=== PATIENT | female | born 1995 | race Caucasian/White ===

== ENCOUNTER 2018-10-03 19:45 | Emergency (ER) | payer OTHER, MEDICAID, SELFPAY ==
[2018-10-03 19:46] VITALS: BP 90/61; PULSE 100; RESP 20; TEMP 36.8; O2SAT 90; BMI 22.4
--- NOTE | 2018-10-03 20:14 | US_ITS ---
We are attempting to reach an attending provider to discuss findings. An addendum with communication details will be sent when the communication is complete. STUDY: FIRST TRIMESTER OBSTETRICAL ULTRASOUND REASON FOR EXAM: Female, 23 years old. Cramping and bleeding LMP: TECHNIQUE: Transvaginal TECHNICAL QUALITY: Adequate. PRIOR ULTRASOUND: None. FINDINGS: There is visualization of a single gestational sac in a normal intrauterine position. The mean sac diameter (MSD) measures 2.57 cm, indicating an estimated gestational age (EGA) of 7 weeks, 5 days. The gestational sac shape is within normal limits. There is a visualized yolk sac. The yolk sac measures 4.1 mm. The placenta is non-visualized. There is visualization of a live embryo. The crown-rump length (CRL) measures 1.87 cm, indicating an estimated gestational age (EGA) of 8 weeks, 3 days. There is demonstrated cardiac activity with a heart rate of 170 bpm. The gestational sac is within the lower uterine segment. The estimated gestation age (EGA) by LMP is 8 weeks, 5 days. The estimated date of delivery (GLORIA) by LMP is May 10, 2019. The estimated gestation age (EGA) by US is 8 weeks, 1 days. The estimated date of delivery (GLORIA) by US is May 14, 2019. The uterus measures 9.8 x 5.1 x 4.6 cm. There is no demonstrated uterine fibroid. The cervix is closed. The right ovary measures 2.8 x 2 x 1.1 cm. There is no right ovarian cyst. There is no visualized right adnexal mass or complex lesion. The left ovary measures 1.9 x 1.1 x 1.4 cm. There is no left ovarian cyst. There is no visualized left adnexal mass or complex lesion. There is no fluid in the cul de sac. US/Transvaginal w/Preg US IMPRESSION: Viable intrauterine gestation with low-lying gestational sac. This most likely represents evolving spontaneous . Ectopic cervical less likely. Electronically Signed: Ervin Strange MD at 21:32 EDT , Service support ,
[2018-10-03 20:23] LABS: Absolute Lymphocyte Count 1.02 X10^3/ul (0.83-4.51); Absolute Neutrophil Count 10.7 X10^3/uL (2.0-7.7); Basophil# 0.03 X10^3/uL; Basophil% 0.2 % (0-1); Eosinophil# 0.36 X10^3/uL; Eosinophils% 2.8 % (0-5); Hematocrit 43.9 % (37-47); Hemoglobin 14.6 g/dl (12.0-15.0); Lymphocyte # 1.02 X10^3/ul (4.0); Lymphocyte % 7.9 % (19-41); Mean Corp Hgb Conc 33.3 g/gl (32-36); Mean Corpuscular Hgb 29.5 pg (27.0-32.0); Mean Corpuscular Volume 88.7 fL (81-99); Mean Platelet Vol. 12.2 fl (6.2-12.0); Monocyte# 0.76 X10^3/uL; Monocyte% 5.9 % (0-10); Neutrophil # 10.66 X10^3/uL (2.7-7.7); Platelet Count 193 K/mm3 (150-450); RBC Distribution Width CV 14.1 % (11.6-14.6); RBC Distribution Width SD 45.2 fl (35.1-43.9); Red Blood Count 4.95 M/mm3 (4.2-5.4); White Blood Count 12.9 K/mm3 (4.4-11.0)
[2018-10-03 20:25] LABS: POSITIVE COUNT NO; POSITIVE DIFFERENTIAL NO; POSITIVE MORPHOLOGY NO
[2018-10-03 20:32] LABS: Anion Gap 4 (5-15); BUN 12 mg/dL (7-18); BUN/Creat Ratio 11.7 RATIO (10-20); Calcium,Total 8.8 mg/dL (8.5-10.1); Chloride 108 mmol/L (98-107); Creatinine, Serum 1.03 mg/dL (0.55-1.02); EST Glomerular Filtration Rate 72 mL/min (>60); Est Glom Filt Rate - Afr Amer 87 mL/min (>60); Estimated Creatinine Clearance 71.47 ml/min; Glucose 92 mg/dL (74-106); Potassium 3.9 mmol/L (3.5-5.1); Sodium Level 137 mmol/L (136-145)
[2018-10-03 21:38] LABS: Mucous, Urine 0 SEEN /hpf (<or=2+)
[2018-10-03 21:48] LABS: Color, Urine Yellow (Yellow); Glucose, Dipstick Normal (Normal); Ketone-Dipstick 5 mg/dl (Negative); Leukocyte Esterase-Dipstick 500 /ul (Negative); Nitrite-Dipstick Positive (Negative); Occult Blood-Urine 250 /ul (Negative); Protein-Dipstick 30 mg/dl (Negative); Urine Bilirubin Dipstick Negative (Negative); Urine Clarity Cloudy (Clear); Urine Urobilinogen Normal (Normal)
[2018-10-03 21:51] LABS: Red Blood Cells-Urine 50-100 SEEN /hpf (0-5); Squamous Epithelial Cells - UA 0-5 SEEN /hpf (5-10)
[2018-10-03 21:52] LABS: Bacteria 1+ /hpf (None Seen); White Blood Cells >100 SEEN /hpf (0-5)
--- NOTE | 2018-10-03 22:07 | ED.VISSUMM ---
- ER Visit Summary Date of Service: 10/03/18 Chief Complaint: Bleeding History of Present Illness: The patient is a 23 F G2, P0 AB1 at 8 weeks. Blood type a positive. Patient had some light vaginal spotting yesterday and then was passing clots today. She denies lightheadedness or other associated symptoms. Physical Examination: Afebrile and vital signs unremarkable. Patient is alert and oriented. No acute distress. Abdomen soft and nontender. Pelvic exam deferred. Test Results: hCG quant was 58,000. CBC and BMP unremarkable. Urinalysis shows signs of UTI. Pelvic ultrasound showed a live intrauterine approximately 8 weeks old at the cervix. This is thought to be an in progress. Less likely to be an ectopic . Emergency Department Course and Treatment: Findings were discussed with radiology and then commercial lines account manager Dylan. No further orders. This is likely an inevitable . Patient and family were notified. She was treated with Macrobid for UTI. She has an out of town OB that she would like to follow-up with. I also gave her follow-up with MANAGING JEWELER here, if she needs assistance. I advised her that she may have increasing bleeding, pain and may pass tissue. She should return for any severe issues, otherwise follow-up with MANAGING JEWELER. Call in the morning. Treatment Plan: As above Disposition: Discharge Impression: Inevitable This note was generated with [employer] dictation software. It may contain incorrect words, spelling, and punctuation that were not noted in review of the chart prior to signing ED Disposition - Plan for ED Patient: Disposition: Home or Assisted Living Instructions: ED Miscarriage Poss Prescriptions: Nitrofurantoin Macrocrystals [Macrobid] 100 mg PO Q12 #14 cap Referrals: Ella Richardson CNM [Certified Nurse Manager Diversity] - As Needed
--- NOTE | 2018-10-03 22:08 | DCINST.ED_ITS ---
ED Disposition - Plan for ED Patient: Instructions: ED Miscarriage Poss Prescriptions: Nitrofurantoin Macrocrystals [Macrobid] 100 mg PO Q12 #14 cap Referrals: Ella Richardson CNM [Certified Nurse Screw Machine Operator Single Spindle] - As Needed
[2018-10-03] MEDS: Nitrofurantoin Macrocrystals 100 MG Capsule PO (22:17)
[2018-10-03 22:28] VITALS: BP 102/74; PULSE 89; RESP 16; O2SAT 95
--- NOTE | 2018-10-03 22:29 | ED.RN ---
REVIEWED D/C INSTRUCTIONS, FOLLOW UP CARE, PRESCRIPTION, AND S/S THAT WOULD WARRANT A RETURN TO THE ED WITH PT. PT VERBALIZED AN UNDERSTANDING AND DENIES FURTHER QUESTIONS FOR THIS RN. PT SKIN P/W/D, RESP EVEN AND UNLABORED, PT A&O X 3, NO DISTRESS NOTED. PT AMBULATED OUT OF ED, GAIT STEADY.
== END 2018-10-03 22:31 | disposition home or self-care (01) ==
PROVIDERS: Emergency Provider Emergency Medicine
DX: O03.88 Urinary tract infection following complete or unspecified spontaneous abortion (principal)
CPT/HCPCS: 76817; 80048; 81001; 84702; 85025; 99284; A4216

== ENCOUNTER 2018-10-27 18:23 | Observation (INO) | payer OTHER, MEDICAID, SELFPAY ==
[2018-10-27] VITALS (15 sets, daily range): BP systolic 74–118; BP diastolic 52–83; PULSE 77–112; RESP 14–24; TEMP 36.6–37.5; O2SAT 88–94; BMI 22.6; BMI 22.7
--- NOTE | 2018-10-27 18:43 | US_ITS ---
HISTORY: BLEEDING KNOWN MISCARRIAGE - SEE 10/03 IMAGES QUANT TODAY 524 . WAS 58,000 ON 10/03 EXAM/TECHNIQUE: US Transvaginal Non-OB: Transvaginal images. COMPARISON: Pelvic ultrasound 10/03/18. FINDINGS: # of images incl. paperwork: 73 The intrauterine seen on the previous study is no longer evident. The fundal endometrium measures 0.5 cm thick and is unremarkable. However the lower uterine segment endometrium/upper cervical canal is expanded by an oval in shape 3.3 x 1.8 x 2.7 cm in size heterogenous mostly soft tissue echogenicity structure with foci of Doppler flow within it. The uterus measures 9.3 x 5.3 x 4.1 cm. No fibroids. Right ovary 3.6 x 3.6 x 1.4 cm. Left ovary 3.4 x 2.3 x 1.7 cm. Both ovaries have normal ultrasound appearance with normal Doppler flow. Moderate free fluid is seen in the pelvis. US/Transvaginal Non- IMPRESSION: 3.3 cm in greatest dimension oval heterogenous lesion expands the lower uterine segment endometrium/upper cervical canal most likely retained products of conception. The intrauterine seen on previous study is no longer evident. at 2025 Reported and signed by: Ilya Werner MD Electronically Signed: Ilya Werner, at 20:24 EDT Tel , Service support ,
--- NOTE | 2018-10-27 18:49 | EKG12_ITS ---
Test Reason : CARIAC HX Blood Pressure : / mmHG Vent. Rate : 099 BPM Atrial Rate : 099 BPM P-R Int : 126 ms QRS Dur : 116 ms QT Int : 352 ms P-R-T Axes : 033 046 086 degrees QTc Int : 451 ms Normal sinus rhythm Incomplete right bundle branch block ST & T wave abnormality, consider anterior ischemia Abnormal ECG Confirmed by RAFI SORENSON, SHRADDHA ([id number]), magazine editor KIRA DANGELO ([id number]) on 10/30/2018 7:58:59 AM Referred By: Ingrid Alvarez Confirmed By:SHRADDHA MCKEE MD
--- NOTE | 2018-10-27 18:49 | ED.VISSUMM ---
- ER Visit Summary Date of Service: 10/27/18 Chief Complaint: Vaginal bleeding History of Present Illness: The patient is a 23 F who on October 03 was diagnosed with inevitable miscarriage. G2, P0 Ab1. She states that she is continued to bleed since that time. There is been some days where she has not bled but other days where she has had heavy bleeding and large clots. Significant other notes that she looks pale. She states she feels lightheaded and weak. The note that she is been chilling when unable to get warm. She has not seen INSURANCE CLAIMS CLERK. She is from out of town but they come to this facility because mom told her that this would be the place to be. She has a history of hypoplastic left heart. She said she had several cardiac surgeries to correct the heart and is currently not following with cardiology. She is a poor historian Physical Examination: Sitting pressure 74/52 heart rate of 112 respirations are 18 pulse ox 89% on room air temperature 97.8 Gen: Well-nourished well-developed Head: Normocephalic atraumatic Eyes: Perrl EOMI pale conjunctiva ENT: TMs clear no rhinorrhea moist mucous membranes Neck: Supple no lymphadenopathy no JVD nontender CVS: Regular rate tachycardia rhythm no murmurs normal S1-S2 Respiratory: No distress clear to auscultation bilaterally chest nontender Abdomen: Soft nontender nondistended normal bowel sounds no masses Back: Nontender Extremity: Nontender no edema Skin: Parlor no rash Neuro: alert orientated ?3 CN II-XII intact normal strength sensation Psych: Normal affect normal mood Test Results: Hemoglobin is 6.9. Quant date of hCG is 547. ABO Rh is a positive. Pelvic ultrasound demonstrated retained products. Emergency Department Course and Treatment: I discussed the case early with Dr. Alvarez and updated her once the work-up was completed she is coming to the emergency department to evaluate the patient. She is typed and crossed 1 unit. Impression: 1. Retained products of conception 2. Anemia requiring transfusion. This note was generated with [employer] dictation software. It may contain incorrect words, spelling, and punctuation that were not noted in review of the chart prior to signing ED Disposition - Plan for ED Patient: Referrals: Care Physician,No Primary [Primary Care Provider] -
[2018-10-27 18:56] LABS: Absolute Lymphocyte Count 0.81 X10^3/ul (0.83-4.51); Absolute Neutrophil Count 8.6 X10^3/uL (2.0-7.7); Basophil# 0.07 X10^3/uL; Basophil% 0.7 % (0-1); Eosinophil# 0.36 X10^3/uL; Eosinophils% 3.4 % (0-5); Hematocrit 21.9 % (37-47); Hemoglobin 6.9 g/dl (12.0-15.0); Lymphocyte # 0.81 X10^3/ul (4.0); Lymphocyte % 7.7 % (19-41); Mean Corp Hgb Conc 31.5 g/gl (32-36); Mean Corpuscular Hgb 27.5 pg (27.0-32.0); Mean Corpuscular Volume 87.3 fL (81-99); Mean Platelet Vol. 10.8 fl (6.2-12.0); Monocyte# 0.62 X10^3/uL; Monocyte% 5.9 % (0-10); Neutrophil # 8.64 X10^3/uL (2.7-7.7); Neutrophil % 81.9 % (47-70); POSITIVE COUNT NO; POSITIVE DIFFERENTIAL NO; POSITIVE MORPHOLOGY NO; Platelet Count 347 K/mm3 (150-450); RBC Distribution Width CV 14.1 % (11.6-14.6); RBC Distribution Width SD 45.4 fl (35.1-43.9); Red Blood Count 2.51 M/mm3 (4.2-5.4); White Blood Count 10.5 K/mm3 (4.4-11.0)
[2018-10-27 18:59] LABS: International Normalized Ratio 1.2; Prothrombin Time (Protime)PT. 14.7 SECONDS (11.7-14.9)
[2018-10-27 19:00] LABS: Partial Thromboplast Time 38.3 Seconds (24.1-36.2)
[2018-10-27 19:05] LABS: Anion Gap 6 (5-15); BUN 9 mg/dL (7-18); BUN/Creat Ratio 9.2 RATIO (10-20); Calcium,Total 8.2 mg/dL (8.5-10.1); Chloride 107 mmol/L (98-107); Creatinine, Serum 0.98 mg/dL (0.55-1.02); EST Glomerular Filtration Rate 76 mL/min (>60); Est Glom Filt Rate - Afr Amer 92 mL/min (>60); Estimated Creatinine Clearance 75.12 ml/min; Glucose 109 mg/dL (74-106); Potassium 3.5 mmol/L (3.5-5.1); Sodium Level 138 mmol/L (136-145)
--- NOTE | 2018-10-27 19:05 | RAD_ITS ---
HISTORY: CONTINUED VAGINAL BLEEDING FROM MISCARRIAGE APPROX 3 WEEKS AGO. HX OF LEFT HYPOPLASTIC HEART SYNDROME. EXAMINATION/TECHNIQUE: XR Chest 1 View: AP portable upright COMPARISON: None FINDINGS: LINES/DEVICES: None. LUNGS: Mild coarse perihilar and infrahilar interstitial prominence. No pneumothorax. No pleural effusion or consolidation. MEDIASTINUM AND CARDIOVASCULAR STRUCTURES: Cardiac silhouette not enlarged. Central airways and mediastinal contour are unremarkable. BONES AND SOFT TISSUES: Sternotomy wires. RAD/Chest 1 View (Portable) IMPRESSION: Mild coarse perihilar and infrahilar interstitial prominence. Mild acute edema is possible although this could be chronic. Comparison with prior would be helpful. at 1942 Reported and signed by: Ilya Werner MD Electronically Signed: Ilya Werner, at 19:41 EDT Tel , Service support ,
[2018-10-27 19:10] LABS: hCG Titer Quant., Serum 547 mIU/mL (1-3)
--- NOTE | 2018-10-27 21:09 | ED.RN ---
DR. DAMON AT BEDSIDE.
--- NOTE | 2018-10-27 21:23 | PCM.HP.STD ---
Problem List (1) Incomplete Status: Acute (2) Chronic blood loss anemia Status: Chronic (3) History of hypoplastic left heart syndrome Status: Acute (4) History of repair of hypoplastic left heart by [place] operation Status: Acute History of Present Illness Date of Admission: 10/27/18 - vaginal bleeding , incomplete SAB Chief Complaint: vaginal bleeding The patient is a 23 year old who presents with ongoing vaginal bleeding. She was here on October 03 an diagnosed with inevitable miscarriage on ultrasound then. She has not seen a COMMUNITY FACILITATOR in follow up for this. She states that she is continued to bleed since that time. She states she feels lightheaded and and has been chilling / unable to get warm. She has a history of hypoplastic left heart repaired in three separate surgeries. One surgery was complicated by a blood clot and acute kidney failure (resolved). . She is currently not following with cardiology. Her mother is here as well as other family members, boyfriend. Mother completes patient's history. Ann Marie also had repair of a cloaca. No other surgeries. Her mother states that Ann Marie is very anxious re any medical procedure. SOCIAL: Smokes. No drugs or EtOH FAMILY history: no problems with anesthesia reported. POB: [id number] with current incomplete SAB as cause of her bleeding and anemia PGYN: non contributory other than repair of rectovaginal area. PMH: Hypoplastic left heart Congenital malformation, cloaca repaired MEDS: baby ASA only Has a med to start for presumed UTI (Macrobid) but has not started this. A positive blood type Hgb 6.9 g/dl. One unit of blood hanging Ultrasound: The intrauterine seen on the previous study is no longer evident. The fundal endometrium measures 0.5 cm thick and is unremarkable. However the lower uterine segment endometrium/upper cervical canal is expanded by an oval in shape 3.3 x 1.8 x 2.7 cm in size heterogenous mostly soft tissue echogenicity structure with foci of Doppler flow within it. The uterus measures 9.3 x 5.3 x 4.1 cm. No fibroids. Right ovary 3.6 x 3.6 x 1.4 cm. Left ovary 3.4 x 2.3 x 1.7 cm. Both ovaries have normal ultrasound appearance with normal Doppler flow. Past Medical History Past Medical History (Chronic Problems): Chronic Problems (Last Updated 10/27/18 @ 21:27 by Ingrid Alvarez MD) Chronic blood loss anemia (Chronic) Allergies latex Allergy (Verified 10/27/18 18:26) Rash Home Medications: Ambulatory Orders Medication Instructions Recorded Aspirin [Aspirin, Baby] 81 mg PO DAILY@0800 10/27/18 Surgical History: - - Three cardiac surgeries to correct hypoplastic Left heart. Surgery to correct cloaca COMMUNITY FACILITATOR History: spontaneous - two SABs , this one is her second and incomplete with POC at lower uterine segment. IUP documented by ultrasound at [facility] on 10/03/18 Smoking Status: Current some day smoker Alcohol: None Drugs: None Review of Systems Constitutional: Reports: Chills, Weakness, Fatigue Gynecological: Reports: Vaginal bleeding VTE Information - Inpt Only VTE Present on Admission: No VTE Mechan Device Prophylaxis: SCD's VTE Pharm Prophylaxis ordered?: No Patient Problems: Active and Suspected Problems (Last Updated 10/27/18 @ 21:27 by Ingrid Alvarez MD) Hypoplastic left heart (Acute) Incomplete (Acute) History of hypoplastic left heart syndrome (Acute) History of repair of hypoplastic left heart by [place] operation (Acute) Cloacal malformation (Acute) Subjective: Pale appearing female NAD lying in bed, IV in place with unit of blood infusing - Physical Exam General: Alert, Oriented x3, Cooperative HEENT: Atraumatic Neck: Supple Extremities: No clubbing, No cyanosis, No edema Neurological: Cranial nerves II-XII grossly intact Psych/Mental Status: Anxious Vital Signs Temp Pulse Resp BP Pulse Ox 99.3 F H 95 22 H 105/66 92 10/27/18 21:20 10/27/18 21:20 10/27/18 21:20 10/27/18 21:20 10/27/18 21:20 Oxygen Flow Rate (L/min) 3 Oxygen Delivery Method Nasal Cannula Weight: 58.06 kg Body Mass Index (BMI) 22.6 Intake and Output for Last 24 Hours 10/25/18 10/26/18 10/27/18 23:59 23:59 23:59 Intake Total 0 / 0 Balance 0 / 0 Laboratory Tests Past 24 Hrs 10/27/18 10/27/18 10/27/18 18:35 18:35 18:35 WBC 10.5 RBC 2.51 L Hgb 6.9 L Hct 21.9 L MCV 87.3 MCH 27.5 MCHC 31.5 L RDW 14.1 RDW Differential 45.4 H Plt Count 347 MPV 10.8 Immature Gran % (Auto) 0.400 Neut % (Auto) 81.9 H Lymph % (Auto) 7.7 L Cottle % (Auto) 5.9 Eos % (Auto) 3.4 Baso % (Auto) 0.7 Absolute Neuts (auto) 8.6 H Absolute Lymphs (auto) 0.81 L Total Counted Not Reportable PT 14.7 INR 1.2 APTT 38.3 H Sodium 138 Potassium 3.5 Chloride 107 Carbon Dioxide 25.0 Anion Gap 6 BUN 9 Creatinine 0.98 Estim Creat Clear Calc 75.12 Est GFR (MDRD) Af Amer 92 Est GFR (MDRD) Non-Af 76 BUN/Creatinine Ratio 9.2 L Glucose 109 H Calcium 8.2 L HCG, Quant Blood Type Antibody Screen Crossmatch 10/27/18 10/27/18 10/27/18 18:35 18:35 18:35 WBC RBC Hgb Hct MCV MCH MCHC RDW RDW Differential Plt Count MPV Immature Gran % (Auto) Neut % (Auto) Lymph % (Auto) Cottle % (Auto) Eos % (Auto) Baso % (Auto) Absolute Neuts (auto) Absolute Lymphs (auto) Total Counted PT INR APTT Sodium Potassium Chloride Carbon Dioxide Anion Gap BUN Creatinine Estim Creat Clear Calc Est GFR (MDRD) Af Amer Est GFR (MDRD) Non-Af BUN/Creatinine Ratio Glucose Calcium HCG, Quant 547 H Blood Type A POSITIVE Antibody Screen NEGATIVE Crossmatch See Detail Assessment/Plan All Active Problems (Last Updated 10/27/18 @ 21:27 by Ingrid Alvarez MD) Hypoplastic left heart (Acute) Incomplete (Acute) History of hypoplastic left heart syndrome (Acute) History of repair of hypoplastic left heart by [place] operation (Acute) Cloacal malformation (Acute) Incomplete -- suction D and C tonight Reviewed R,B,A and advised outpt preocedure but may stay overnight due to hour. Reviwed IV sedation Blood loss anemia. bleeding in last month -- iron supplement -- one unit of blood ordered and being transfused. To OR. NPO since approx 1630 per family.
--- NOTE | 2018-10-27 21:46 | PCM.DC.D&C ---
Discharge Diet: No Restrictions Discharge Activity: May Shower, May Take a Tub Bath May resume sexual activity in: 1-2 weeks Call your doctor if you observe: Fever of 101 or Higher, Using more than one pad per hour, Uncontrolled pain Additional Instructions: Move frequently within the 5 days after surgery Resume all usual activity by October 28, 2018. Allergies/Adverse Reactions: Allergies latex Allergy (Verified 10/27/18 18:26) Rash Medications to take at Discharge Acetaminophen/Codeine #3 [Tylenol#3] 1 tab PO Q6H PRN PRN 2 Days #5 tab 10/27/18 Aspirin [Aspirin, Baby] 81 mg PO DAILY@0800 10/27/18 Ferrous Gluconate 325 mg PO BIDCM #60 tab 10/27/18 The following prescriptions were given: Acetaminophen/Codeine #3 [Tylenol#3] 1 tab PO Q6H PRN PRN 2 Days #5 tab PRN Reason: Mod-Severe Pain (4-10/10) Ferrous Gluconate 325 mg PO BIDCM #60 tab Primary Care Physician: Care Physician,No Primary [Primary Care Provider] - Test Results: Test results from this visit will be discussed in further detail at your follow-up appointment, if applicable. Please Follow Up With: Ingrid Alvarez MD - [phone] When: two weeks for postop follow up appointment Proposed Discharge Date: 10/28/18
--- NOTE | 2018-10-27 21:50 | DCINST_ITS ---
Discharge Diet: No Restrictions Discharge Activity: May Shower, May Take a Tub Bath May resume sexual activity in: 1-2 weeks Call your doctor if you observe: Fever of 101 or Higher, Using more than one pad per hour, Uncontrolled pain Additional Instructions: Move frequently within the 5 days after surgery Resume all usual activity by October 28, 2018. Allergies/Adverse Reactions: Allergies latex Allergy (Verified 10/27/18 18:26) Rash Medications to take at Discharge Acetaminophen/Codeine #3 [Tylenol#3] 1 tab PO Q6H PRN PRN 2 Days #5 tab 10/27/18 Aspirin [Aspirin, Baby] 81 mg PO DAILY@0800 10/27/18 Ferrous Gluconate 325 mg PO BIDCM #60 tab 10/27/18 The following prescriptions were given: Acetaminophen/Codeine #3 [Tylenol#3] 1 tab PO Q6H PRN PRN 2 Days #5 tab PRN Reason: Mod-Severe Pain (4-10/10) Ferrous Gluconate 325 mg PO BIDCM #60 tab Primary Care Physician: Care Physician,No Primary [Primary Care Provider] - Test Results: Test results from this visit will be discussed in further detail at your follow- up appointment, if applicable. Please Follow Up With: Ingrid Alvarez MD - [phone] When: two weeks for postop follow up appointment Proposed Discharge Date: 10/28/18
--- NOTE | 2018-10-27 22:18 | POC_PTH ---
PATIENT: MAXIMUS MAKI LOC: [facility] U#:[id number] AGE/SX: 23/F ROOM: MS321 RE10/27/[address]: Dr. Ingrid Alvarez MD : 1995 BED: 1 DIS: 10/28/2018 SPEC #: [id number] RECD: 10/29/18 09:15 STATUS: CHAD IDNU #: [id number] CAR: 10/27/18 22:[address]: Ingrid lAvarez DEPT: SURGICAL PATHOLOGY RECD BY: Holland Joseph ENTERED: 10/29/18 12:22 SP TYPE: PROD CONC OTHR DR: No Primary Care Phys Tissues: Product of conception, NOS Procedures: Surgery Specimen Level IV HEADER OPERATION: Dilation and curettage, suction PRE-OP DIAGNOSIS: Incomplete TISSUE SUBMITTED: Products of conception MICROSCOPIC DIAGNOSIS Products of conception: Immature chorionic villi, decidua and gestational endometrium (products of conception). Fragments of benign ecto- and endocervical mucosa with acute and chronic inflammation. SJ:libia 10/30/18 MICROSCOPIC DESCRIPTION Slides are reviewed. GROSS DESCRIPTION Received in fixative is one container labeled with the patient's name and designated products of conception. The specimen consists of multiple irregular fragments of light piedra soft tissue that in aggregate measure 6 x 5.5 x 0.6 cm. parts are not grossly recognized. Family Sociologist portions are submitted in three cassettes. / AM:libia 10/29/18 TC:5 CPT: 02732
[2018-10-27] MEDS: Methylergonovine 0.2 MG/ML Ampul IM (22:40)
--- NOTE | 2018-10-27 22:59 | PCM.OPRPT ---
Problem List (1) Incomplete Status: Acute (2) Chronic blood loss anemia Status: Chronic (3) History of hypoplastic left heart syndrome Status: Acute (4) History of repair of hypoplastic left heart by [place] operation Status: Acute Report of Operation Date of Procedure: 10/27/18 - incomplete SAB Pre-Operative Diagnosis: incomplete SAB. Blood loss anemia requiring transfusion Post-Operative Diagnosis: Same Surgery/Procedure Performed:: Suction dilation and curettage Description of Surgical Findings:: Findings: Uterus AV and sounds to 8 cm No cervical lesions noted. Tissue consistent with POC noted. Type of Anesthesia:: IV Sedation - 5 cc of 1% lidocaine as paracervical block Anesthesiologist: Corrine Caldwell MD Specimen's removed: Uterine curettings, POC Drains: latex free catheter used to drain bladder prior to case Estimated Blood Loss (mL): 20 Fluids Replaced: LR Description of Procedure: Narrative Account: After the risks, benefits, alteratives of the procedure were reviewed with the patient informed consent was obtained. The patient was taken to the OR with IV running and placed in dorsal supine position on the operating table. She was given MAC IV sedation, and then repositioned to the dorsal lithotomy position and was prepped and draped in the usual sterile fashion. The bladder was drained with a latex free catheter. A Graves speculum was placed, and a 5 cc paracervical block of 1% lidocaine without epinephrine was instilled. The anterior lip of the cervix was grasped with a single toothed tenaculum. The cervix was then easily dilated to allow admission of an 8 mm curved suction curette tip. The suction curette was then placed to the uterine fundus, suction applied, and POC were obtained. After most of the products of conception were removed a sharp curettage was performed and good Crei was noted in all quadrants of the uterus. One final pass was conducted with the suction curette and the remaining products of conception and uterine curettings were removed. A sponge stick was then used to remove any remaining tissue and blood from the upper vagina and cervix . All instruments were then removed from the vagina and cervix. Excellent hemostasis was noted. The patient was awakened from general anesthesia and then transferred to her recovery room bed in stable condition after tolerating the procedure well. Sponge , instrument, and needle counts were correct x two. Medications given intraoperatively included: Methergine 0.2 mg IM x one, and Toradol 15-30 mg IV x one. For a complete listing of medications given intraoperatively, please see the anesthesia record. - Complications none - Admit VTE Documentation VTE Present on Admission: No VTE Pharm Prophylaxis ordered?: No
[2018-10-28 00:15] VITALS: O2SAT 94
[2018-10-28 05:44] VITALS: BP 106/59; PULSE 103; RESP 18; TEMP 38.1; O2SAT 95
[2018-10-28 07:22] LABS: Hematocrit 22.8 % (37-47); Hemoglobin 7.4 g/dl (12.0-15.0); Mean Corp Hgb Conc 32.5 g/gl (32-36); Mean Corpuscular Hgb 27.1 pg (27.0-32.0); Mean Corpuscular Volume 83.5 fL (81-99); Mean Platelet Vol. 10.4 fl (6.2-12.0); Platelet Count 234 K/mm3 (150-450); RBC Distribution Width CV 16.4 % (11.6-14.6); RBC Distribution Width SD 50.2 fl (35.1-43.9); Red Blood Count 2.73 M/mm3 (4.2-5.4); White Blood Count 14.1 K/mm3 (4.4-11.0)
[2018-10-28 07:24] LABS: Scan Indicated on CBC? Y/N NO
[2018-10-28 07:55] VITALS: PULSE 120
--- NOTE | 2018-10-28 07:56 | PN_ITS ---
Patient Problems: Active and Suspected Problems (Last Updated 10/27/18 @ 23:59 by Ingrid Alvarez MD) Incomplete (Acute) Subjective: POD#1 Suction D and C for Incomplete AB Blood loss anemia requiring transfusion Reports not bleeding. S.O. in room at bedside chair and is very angry. States he has PTSD Anxiety disorder and is anxious States they will sign out AMA. He is angry that I broached the subject last night with the family (patient's mother included) regarding the patient's ability to tolerate a p regnancy, pain of delivery and then parent. Encouraged them to discuss contraception. Patient with witnessed very limited ability to tolerate even minor medical interventions last night and again today. Her mother had to be in the recovery room for her -- as she woke up crying like a child, anxious, panicked and combative until her mother present. Objective: Sitting up in bed. IV to S/L Pale, NAD - Physical Exam General: Alert, Oriented x3, Cooperative, No apparent distress HEENT: Atraumatic Neck: Supple Neurological: Cranial nerves II-XII grossly intact Psych/Mental Status: Normal Affect Vital Signs Temp Pulse Resp BP Pulse Ox 100.5 F H 103 H 18 106/59 L 95 10/28/18 05:44 10/28/18 05:44 10/28/18 05:44 10/28/18 05:44 10/28/18 05:44 Oxygen Flow Rate (L/min) 2 Oxygen Delivery Method Nasal Cannula Weight: 58.06 kg Body Mass Index (BMI) 22.6 Intake and Output for Last 24 Hours 10/26/18 10/27/18 10/28/18 23:59 23:59 23:59 Intake Total 100 / 100 1091 / 1091 Output Total 50 / 50 240 / 240 Balance 50 / 50 851 / 851 Laboratory Tests Past 24 Hrs 10/27/18 10/27/18 10/27/18 18:35 18:35 18:35 WBC 10.5 RBC 2.51 L Hgb 6.9 L Hct 21.9 L MCV 87.3 MCH 27.5 MCHC 31.5 L RDW 14.1 RDW Differential 45.4 H Plt Count 347 MPV 10.8 Immature Gran % (Auto) 0.400 Neut % (Auto) 81.9 H Lymph % (Auto) 7.7 L Stafford % (Auto) 5.9 Eos % (Auto) 3.4 Baso % (Auto) 0.7 Absolute Neuts (auto) 8.6 H Absolute Lymphs (auto) 0.81 L Total Counted Not Reportable PT 14.7 INR 1.2 APTT 38.3 H Sodium 138 Potassium 3.5 Chloride 107 Carbon Dioxide 25.0 Anion Gap 6 BUN 9 Creatinine 0.98 Estim Creat Clear Calc 75.12 Est GFR (MDRD) Af Amer 92 Est GFR (MDRD) Non-Af 76 BUN/Creatinine Ratio 9.2 L Glucose 109 H Calcium 8.2 L HCG, Quant Blood Type Antibody Screen Crossmatch 10/27/18 10/27/18 10/27/18 18:35 18:35 18:35 WBC RBC Hgb Hct MCV MCH MCHC RDW RDW Differential Plt Count MPV Immature Gran % (Auto) Neut % (Auto) Lymph % (Auto) Stafford % (Auto) Eos % (Auto) Baso % (Auto) Absolute Neuts (auto) Absolute Lymphs (auto) Total Counted PT INR APTT Sodium Potassium Chloride Carbon Dioxide Anion Gap BUN Creatinine Estim Creat Clear Calc Est GFR (MDRD) Af Amer Est GFR (MDRD) Non-Af BUN/Creatinine Ratio Glucose Calcium HCG, Quant 547 H Blood Type A POSITIVE Antibody Screen NEGATIVE Crossmatch See Detail 10/28/18 07:06 WBC 14.1 H RBC 2.73 L Hgb 7.4 L Hct 22.8 L MCV 83.5 MCH 27.1 MCHC 32.5 RDW 16.4 H RDW Differential 50.2 H Plt Count 234 MPV 10.4 Immature Gran % (Auto) Neut % (Auto) Lymph % (Auto) Stafford % (Auto) Eos % (Auto) Baso % (Auto) Absolute Neuts (auto) Absolute Lymphs (auto) Total Counted PT INR APTT Sodium Potassium Chloride Carbon Dioxide Anion Gap BUN Creatinine Estim Creat Clear Calc Est GFR (MDRD) Af Amer Est GFR (MDRD) Non-Af BUN/Creatinine Ratio Glucose Calcium HCG, Quant Blood Type Antibody Screen Crossmatch Medical Necessity - Tobacco Use Smoking Status: Current some day smoker Assessment/Plan All Active Problems (Last Updated 10/27/18 @ 23:59 by Ingrid Alvarez MD) Incomplete (Acute) 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 Blood loss anemia. Significant bleeding in last month and did not followed up with CLINICAL APPLICATION CONSULTANT as recommended at ED visit on 10/03/18. -- iron supplement ordered BID RX given -- one unit of blood given -- Hgb stable, improved -- tachycardia -- likely reaction to agitation and anger on part of S.O. S.O. at present very agitated, angry Threatening to sign out AMA. Advised that is not needed as she is being sent home after CBC results back. Advised them that my job was to take care of her bleeding and be certain she is stable prior to discharge. Stable for dischg, not bleeding. More stable now than at presentation. Home. Advised she will need to see CLINICAL APPLICATION CONSULTANT in her area to establish care. No further discussion this am re her mental ability to deal with the challenges of carrying a child, and with the pain of delivering a baby. But encouraged them to discuss this further.
[2018-10-28 08:13] VITALS: BP 105/65; PULSE 122; RESP 18; TEMP 37.5; O2SAT 95
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
== END 2018-10-28 08:15 | disposition home or self-care (01) ==
LOC: ED 20:15 → SDC 21:27 → AC 21:31 → MS3 23:08 → SDC 10-29 10:18 → MS3 10-29 10:18
PROVIDERS: Admitting Provider Obstetrics & Gynecology; Emergency Provider Emergency Medicine; Referring Provider Obstetrics & Gynecology; Visit Provider Obstetrics & Gynecology
PROC: (CPT 59812; principal; 2018-10-27 10:00)
DX: O03.4 Incomplete spontaneous abortion without complication (principal); D50.0 Iron deficiency anemia secondary to blood loss (chronic); Q23.4 Hypoplastic left heart syndrome; F17.200 Nicotine dependence, unspecified, uncomplicated; Q43.7 Persistent cloaca
CPT/HCPCS: 01965; 59812; 71045; 76830; 80048; 84702; 85025; 85027; 85610; 85730; 86850; 86900; 86920; 88305; 93005; 99218; 99285; 99406; J7030; P9016; A4216; G0378; J2405